=== PATIENT | female | born 1975 ===

== ENCOUNTER 2017-08-13 11:23 | Inpatient (IN) ==
[~2017-08-13 11:23] MED LIST: Famotidine 20 MG/2 ML VIAL IVP PRN; Metoclopramide 10 MG/2 ML VIAL IVP PRN; Naloxone 0.4 MG/ML INJ IVP PRN; Ondansetron 4 MG/2 ML VIAL IVP PRN
[2017-08-13] MEDS ORDERED: Ringers Solution, Lactated 1,000 ML IVC SCH (11:30)
[2017-08-13] MEDS ORDERED: Ringers Solution, Lactated 1,000 ML ONE (11:32)
--- NOTE | 2017-08-13 11:36 | OB/GYN History & Physical ---
Date of Encounter: 08/13/17 Time of Encounter: 11:30 Assessment and Plan (1) 39 weeks gestation of Current visit: Yes Status: Acute (2) Spontaneous rupture of amniotic membranes Current visit: Yes Status: Acute Admit to labor and delivery Initiate nipple stimulation - stim 10 minutes then 5 minute break x 1 hour Check FSBS GBS - Expectant management Anticipate vaginal delivery Dr. Arce aware of POC and agrees (3) Gestational diabetes mellitus (GDM) affecting Current visit: Yes Status: Acute Diet controlled Plan: Check FSBS now (4) AMA (advanced maternal age) multigravida 35+ Current visit: Yes Status: Acute Qualifiers: Trimester: third trimester Qualified Code(s): O09.523 - Supervision of elderly multigravida, third trimester (5) High-risk , multigravida of advanced maternal age, antepartum Current visit: Yes Status: Acute History of Present Illness Chief complaint: ROM HPI: Ms. Mccauley is a 42 year old at 39+3 weeks who presents with c/o SROM at 0300 on 08.13.17. She denies feeling contractions, vaginal bleeding, RAMIREZ, blurry vision. C/o LOF that is clear. Denies fever. GDMA 1 - diet controlled. O- GBS - Hgb A1c 4.8 Hep B - HIV - T. Palladium - Rubella immune Varicella immune Past Med Surg Social Fam HX - Past Medical History Medical history: no medical history Psychiatric history: no psych history - Past Surgical History Surgical History: no surgical history - Social History Smoking Status: Never smoker Smokeless Tobacco Status: No Alcohol use: none Drug use: none - Family History Mother Living Status: Still Living Hx Family Cardiac Disorders: Yes (HTN) Obstetrical History - Pregnancies : 3 Para: 1 Term: 1 (, girl, [id number]) : 0 Ab's: 1 Livin Medications and Allergies Vit Calc,Iron,Folic [ Vitamins] 1 each PO DAILY 08/13/17 [ History] 3 Allergy/AdvReac Type Severity Reaction Status Date / Time No Known Allergies Allergy Verified 08/13/17 11:07 Review of System OB All systems PM: reviewed and no additional remarkable complaints except as stated Exam - Constitutional Constitutional: well developed, well nourished, no acute distress, average body habitus - HEENT HEENT: Normocephaly, Mucus Membranes Moist - Neck Neck exam: full ROM - Lungs Respiratory exam: CTAB - Cardiovascular Cardiovascular exam: RRR, +S1, +S2 - Breasts Breast: bilateral: normal - Abdomen Abdomen: Present: bowel sounds normal, gravid, non tender - Extremities Extremities exam: normal inspection, pedal edema - Vulva Vulva: bilateral: normal - Vagina Vagina: Present: normal moisture - Cervix Dilation: 3 Effacement: 50 Station: -1 - Uterus Uterus exam: Present: normal size, normal contour Results Result Diagrams: 08/13/17 11:48 All other labs normal. - VTE Reasons for not Prescribing Prophylaxis: Treatment not Indicated - Low risk for VTE
[2017-08-13] MEDS ORDERED: Oxytocin 20 units/ LR 1000 mL 20 UNIT/1,000 ML BAG IVC SCH ×2 (12:00→20:37)
[2017-08-13 12:05] LABS: Basophils % 0.3 %; Eosinophils % 0.3 %; Hematocrit 32.2 % (35.3-44.9); Hemoglobin 10.3 g/dL (11.5-15.4); Immature Granulocytes % 0.5 % (0-4); Lymphocytes # 1.5 K/mcL (0.6-4.6); Lymphocytes % 14.1 %; Mean Corpuscular Hemoglobin 26.6 pg (28.0-33.3); Mean Corpuscular Volume 83.2 fL (83.0-100.0); Mean Platelet Volume 10.8 fL (9.4-12.4); Monocytes # 0.6 K/mcL (0.0-1.3); Monocytes % 5.4 %; Neutrophils # 8.2 K/mcL (1.6-8.9); Platelet Count 239 K/mcL (140-400); Red Blood Count 3.87 M/mcL (3.82-4.97); Red Cell Distribution Width 13.7 % (11.5-14.5); Segmented Neutrophils % 79.4 %
[2017-08-13 12:13] LABS: Amphetamine Screen,Urine Negative ng/mL (Cutoff=1000); Barbiturate Screen,Urine Negative ng/mL (Cutoff=200); Benzodiazepines Screen,Urine Negative ng/mL (Cutoff=200); Cannabinoid Screen,Urine Negative ng/mL (Cutoff = 50); Cocaine Screen,Urine Negative ng/mL (Cutoff= 300); Opiate Screen,Urine Negative ng/mL (Cutoff=300); Phencyclidine Screen,Urine Negative ng/mL (Cutoff=25)
--- NOTE | 2017-08-13 14:34 | OB Labor Progress Note ---
Date of Encounter: 08/13/17 Time of Encounter: 14:32 Labor Progress Note - Subjective Subjective: Pt reports she is still not feeling contractions despite nipple stimulation for the past 2 hours. [place] shows contractions in the presence of nipple stimulation and no contractions when she stops. I encouraged her to start pitocin augmentation to acheive an effective contraction pattern. She states she feels nervous regarding starting pitocin because she doesn't want her baby to be stressed. We discussed risks and benefits of pitocin at length. She requests some time to make her decision. - Heart Tones Heart Tones: Baseline 145 Moderate variability Accelerations present 15 x 15 No decelerations FHR Category I - [place]: Contractions present every 2-3 minutes during stimulation and absent without stimulation. - Interventions Interventions: Pitocin suggested Pt currently walking - Plan Plan: Ambulate for 1 hour Recheck cervix Consider pitocin augmentation Anticipate vaginal delivery
--- NOTE | 2017-08-13 15:12 | OB Labor Progress Note ---
Date of Encounter: 08/13/17 Time of Encounter: 15:10 Labor Progress Note - Subjective Subjective: Pt reports still no contractions. States she is ready to start pitocin for augmentation of labor. - Cervix Cervix: 3/70/-1 - Heart Tones Heart Tones: Baseline 130 Moderate variability Accelerations present 1515 No decelerations FHR category I - [place]: No activity - Interventions Interventions: SVE Start pitocin - Plan Plan: Initiate pitocin and increase to adequate contraction pattern Continue expectant management Pt may ambulate in room and use birthing ball Anticipate vaginal delivery
[2017-08-13] MEDS ORDERED: *HR* FentaNYL (PF) 100 MCG/2 ML VIAL EP ONE (16:21)
[2017-08-13] MEDS ORDERED: EPHEDrine 50 MG/ML VIAL IVP PRN (16:21)
[2017-08-13] MEDS ORDERED: Bupivacaine-MPF 0.25% 10 ML VIAL EP ONE (16:21)
[2017-08-13] MEDS ORDERED: Ondansetron 4 MG/2 ML VIAL IVP PRN (16:21)
[2017-08-13] MEDS ORDERED: Naloxone 0.4 MG/ML INJ IVP PRN (16:21)
--- NOTE | 2017-08-13 16:24 | Anesthesia Evaluation PreOp ---
Date of Encounter: 08/13/17 Time of Encounter: 16:22 - Past History Planned Operation: BLANCA Cardiac History: Denies any Significant Hx Pulmonary History: Denies Any Significant HX CASTING COORDINATOR History: Denies Any Significant HX Other Medical History: Diabetes Type II (gestational diabetes, diet controlled.) , Other (Previous ) Anesthesia History: No Prior Anesthetic Complications, Past Anesthesia ( Previous epidural) : Yes Alcohol Use: none Drug use: none Medications and Allergies Vit Calc,Iron,Folic [ Vitamins] 1 each PO DAILY 08/13/17 [ History] 3 Allergy/AdvReac Type Severity Reaction Status Date / Time No Known Allergies Allergy Verified 08/13/17 11:07 - Meds/Allergy Pre-op Review Medications Reviewed: Yes Allergies Reviewed: Yes Beta Blockers on Current Med List: No Anesthesia Results - Labs 08/13/17 11:48 Anesthesia Exam BP 124/73 P 81 R 18 T 98.2 Height: 5'8" Weight: 85.8 NPO (# of Hours): 4 Pain Scale: 8 Pain Scale Used: Numeric (1 - 10) - HEENT Pupil (Motor): Pupils equal Mallampati: II Teeth: Normal Oral Opening: Greater than 3 - CASTING COORDINATOR LOC: Oriented CASTING COORDINATOR Motor: Normal RUE, Normal LUE, Normal RLE, Normal LLE, Normal Face CASTING COORDINATOR Sensory: Normal: RUE, LUE, RLE, LLE, Face - Cardiac Rhythm: Regular Murmur: None JVD: No Carotid Bruit: No - Pulmonary Breath Sounds: bilateral Clear Respiratory Effort: Symmetrical Anesthesia Assess/Plan ASA Score: 2 Modified Sylvester Scale for Level of Consciousness: Cooperative, oriented, and tranquil Anesthetic Plan: Regional Autologous Blood: No Monitoring Plan: Standard Monitors Recovery Plan: Other
[2017-08-13] MEDS ORDERED: Epidural Premix (fent/bupiv) 110 ML EP ONE (16:26)
[2017-08-13] MEDS ORDERED: *HR* FentaNYL (PF) 100 MCG/2 ML VIAL ONE (16:27)
[2017-08-13] MEDS ORDERED: Bupivacaine-MPF 0.25% 10 ML VIAL ONE (16:28)
[2017-08-13] MEDS ORDERED: Epidural Premix (fent/bupiv) 110 ML EP SCH (16:30)
--- NOTE | 2017-08-13 17:04 | Anesthesia Evaluation Post Op ---
Date of Encounter: 08/13/17 Time of Encounter: 16:32 - Vital Signs Vital Signs: 1632 143/78 P 92 R 18 1656 BP 122/65 P 94 R 16 FHT 120s
--- NOTE | 2017-08-13 17:06 | Anesthesia Procedures ---
Date of Encounter: 08/13/17 Time of Encounter: 16:32 Procedures: Anesthesia - Epidural/Spinal Patient ID/Chart reviewed: Yes Patient examined: Yes OB Eval: Gestational age: 39 OB Eval: : 3 OB Eval: Hx Para: 1 OB Eval: Dilated at (cm): 4 OB Eval: Contractions: Non-stressed pattern Consent Obtained: Yes Supplemental Oxygen: None/Room Air Site Prep: Aseptic Technique, Sterile prep and drape, Povidone-Iodine 1% Patient position: upright Local Anesthetic: Lidocaine 1% Amount of Local Anesthetic used: 3 Touhy Needle Gauge: 18 Touhy Needle Depth (cm): 6 Catheter Depth at Skin (cm): 15 Test Dose (1.5% Lido + Epi): Volume given (mls): 3 Test Dose Result: Negative Loading Dose: Fentanyl (mcg): 100 Loading Dose Administered: Thru Catheter Infusion Med: 0.125% Bupivacaine w/ 2 mcg/ml Fentanyl Infusion Rate (mls/hr): [address]: Tegaderm, Tape Interspace Used: L4-L5 Loss of Resistance (ROZ): Yes Blood: No CSF: No Paresthesia: No Procedure: BLANCA placed 1st pass in upright position without any immediate noted complications. VSS throughout. Vitals + FHT's: 1632 BP 143/78 P 92 R 18 1656 BP 122/65 P 94 R 16 FHT 120s
--- NOTE | 2017-08-13 18:07 | OB/GYN Procedure Note ---
Delivery - Delivery Date: 08/13/17 (Agata Arce DO present for entire delivery) Provider: Radha Jacob Intrapartum events: none Delivery induction: none Delivery augmentation: pitocin Delivery monitor: external FHT, external uterine Anesthesia: epidural Estimated Blood Loss: 200 - (s) Infant A Infant Delivery Date: 08/13/17 Delivery Time: 17:41 Presentation: vertex Position: NICOL Route of delivery: Gender: Female Viability: Viable Pounds: 7 Ounces: 4 Weight Gram: 3.285 kg at 1 minute: 8 at 5 mins: 9 Shoulder Dystocia: not encountered Specimens collected: cord blood Placenta: spontaneous Cord: 3 umbilical vessels - Repair Episiotomy: none Laceration Description: Perineal - 1st Degree - Complications Delivery complications: none Delivery comments: This is a 42-year-old G3 now P2 who was admitted for premature rupture of membranes. She progressed with pitocin augmentation to the second stage of labor. She pushed for 30 minutes. She delivered a viable, 7 pounds 4 ounces female , NICOL over a first-degree laceration. The was placed on the maternal abdomen where mouth and nares were bulb suctioned. A nuchal cord was not identified. No shoulder dystocia was encountered. Cord was clamped and cut and cord blood was collected. scores were 8 at 1 minute and 9 at 5 minutes. The placenta delivered spontaneously and intact, Par[place], with a three -vessel cord. Inspection revealed first-degree perineal laceration. Laceration was repaired with 3-0 vicryl. The uterus was firm with no active bleeding. The repair was done under epidural anesthesia. EBL was 200mL. Placenta and umbilical artery blood gas were not sent. There were no complications during the procedure. Mom and baby [id number] and bonding following delivery in stable condition. Dr. Arce was present for the entire delivery. - Disposition Mom disposition: stable in LDR [place] disposition: stable in LDR
[2017-08-13] MEDS ORDERED: Acetaminophen 325 MG TABLET PO PRN (20:37)
[2017-08-13] MEDS ORDERED: Benzocaine/Menthol 56 GM AEROSOL SPRAY TP PRN (20:37)
[2017-08-13] MEDS ORDERED: Rho Immune Globulin 1,500 UNIT SYRINGE IM PRN (20:37)
[2017-08-13] MEDS: Ibuprofen 600 MG TABLET PO PRN (22:19)
[2017-08-14] MEDS: Ibuprofen 600 MG TABLET PO PRN (07:46)
--- NOTE | 2017-08-14 08:23 | Discharge Summary ---
Date of Encounter: 08/14/17 Time of Encounter: 08:15 - Discharge Diagnosis (1) Status post vaginal delivery Priority: Primary Status: Acute Comments: POD #2 44F G3 now P2 admitted for premature rupture of membranes. She progressed with pitocin augmentation to the second stage of labor. Delivered viable 7 pounds 4 ounces female infant, NICOL over a first-degree laceration. No shoulder dystocia encountered. Cord clamped and cut and cord blood collected. 8 at 1 minute and 9 at 5 minutes. Placenta delivered spontaneously and intact, Par[place], with a three-vessel cord. Inspection revealed first-degree perineal laceration. Laceration was repaired with 3-0 vicryl. The uterus was firm with no active bleeding. EBL was 200mL. Placenta and umbilical artery blood gas were not sent. There were no complications during the procedure. Mom and baby [id number] and bonding following delivery in stable condition. Patient is doing well today Pain is well controlled Lochia is light and without clots Tolerating regular diet; passing flatus Voiding without difficulty VSS Breast feeding Discharge home today (2) 39 weeks gestation of Priority: Primary Status: Acute Comments: (3) AMA (advanced maternal age) multigravida 35+ Priority: Primary Status: Acute Qualifiers: Trimester: third trimester Qualified Code(s): O09.523 - Supervision of elderly multigravida, third trimester (4) Gestational diabetes mellitus (GDM) affecting Priority: Primary Status: Acute (5) High-risk , multigravida of advanced maternal age, antepartum Priority: Primary Status: Acute - Discharge Medications Prescriptions: Breast Pump [BREAST PUMP] 1 each .ROUTE AD #1 each Docusate [Colace] 100 mg PO BID #30 capsule Ferrous Sulfate 325 mg PO DAILY #30 tablet. Ibuprofen 400 mg PO Q6H #30 tablet Home Medications: Vit Calc,Iron,Folic [ Vitamins] 1 each PO DAILY 08/13/17 [ History] Breast Pump [BREAST PUMP] 1 each .ROUTE AD #1 each 08/14/17 [Rx] Docusate [Colace] 100 mg PO BID #30 capsule 08/14/17 [Rx] Ferrous Sulfate 325 mg PO DAILY #30 tablet. 08/14/17 [Rx] Ibuprofen 400 mg PO Q6H #30 tablet 08/14/17 [Rx] Allergies/Adverse Reactions: 3 Allergy/AdvReac Type Severity Reaction Status Date / Time No Known Allergies Allergy Verified 08/13/17 11:07 Data Procedures and tests throughout hospitalization: Laboratory Tests 08/13/17 08/13/17 08/13/17 11:48 11:48 11:57 WBC 10.4 RBC 3.87 Hgb 10.3 L Hct 32.2 L MCV 83.2 MCH 26.6 L MCHC 32.0 RDW 13.7 Plt Count 239 MPV 10.8 Immature Gran % 0.5 Seg Neutrophils % 79.4 Lymphocytes % 14.1 Monocytes % 5.4 Eosinophils % 0.3 Basophils % 0.3 Neutrophils # 8.2 Lymphocytes # 1.5 Monocytes # 0.6 Eosinophils # 0.0 Basophils # 0.0 POC Glucose 71 Urine Opiates Screen Negative Ur Barbiturates Screen Negative Ur Phencyclidine Scrn Negative Ur Amphetamines Screen Negative U Benzodiazepines Scrn Negative Urine Cocaine Screen Negative U Marijuana (THC) Screen Negative Labs on day of discharge: Labs from last 24 hours 08/13/17 08/13/17 08/13/17 11:57 11:48 11:48 WBC 10.4 RBC 3.87 Hgb 10.3 L Hct 32.2 L MCV 83.2 MCH 26.6 L MCHC 32.0 RDW 13.7 Plt Count 239 MPV 10.8 Immature Gran % 0.5 Seg Neutrophils % 79.4 Lymphocytes % 14.1 Monocytes % 5.4 Eosinophils % 0.3 Basophils % 0.3 Neutrophils # 8.2 Lymphocytes # 1.5 Monocytes # 0.6 Eosinophils # 0.0 Basophils # 0.0 POC Glucose 71 Urine Opiates Screen Negative Ur Barbiturates Screen Negative Ur Phencyclidine Scrn Negative Ur Amphetamines Screen Negative U Benzodiazepines Scrn Negative Urine Cocaine Screen Negative U Marijuana (THC) Screen Negative Date of admission: 08/13/17 11:23 Consults: 08/13/17 20:37 Consult to Dietetics Teacher [CONS] Routine Comment: Vaginal delivery, consult needed Discharging clinician: Augusto Castillo Anticipated date of discharge: 08/14/17 - Patient Status Disposition: Home, Self-Care Condition: Good Functional capacity at discharge: independent ambulation Overall status at discharge: patient is back to baseline - Discharge Instructions Follow Up With: Agata Arce, DO [Partnered Physician] - - Diet and Activity Diet: advance to your usual diet 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 Absent: rales, rhonchi, wheezes - Cardiovascular Cardiovascular exam IM: Present: RRR, +S1, +S2 - GI/Abdominal GI/Abdominal exam IM: normal bowel sounds - Extremities Exam Extremities exam IM: Present: radial pulses palpable and symmetrical. Absent: calf tenderness, pedal edema - Neurological Exam Neurological exam: oriented X3, reflexes normal - VTE Reasons for not Prescribing Prophylaxis: Treatment not Indicated - Low risk for VTE - Attending Attestation I examined this patient and my medical decision-making was reviewed with the Resident Physician. I agree with the documented findings, disposition and treatment plan as described except. Rene Walls CNM
[2017-08-14] MEDS ORDERED: Prenatal Vit/FA 1 EACH TABLET PO SCH (09:00)
[2017-08-14 15:48] VITALS: BP 129/78
== END 2017-08-14 18:46 | disposition home or self-care (01) | DRG 775 ==
LOC: 1NENULAB → 1NENUOBS 20:05
PROVIDERS: ADMIT Obstetrics & Gynecology; ATTEND Obstetrics & Gynecology